=== PATIENT | male | born 1950 | race Caucasian/White ===

== ENCOUNTER 2018-05-19 10:07 | Inpatient (IN) | payer MEDICARE, BC ==
[~2018-05-19] VITALS: Ht 190.5 cm; Wt 104.8 kg
[2018-05-19 13:00] VITALS: BP 118/69
[2018-05-19] MEDS ORDERED: LOTENSIN40 MG PO (13:46)
[2018-05-19] MEDS ORDERED: FLOMAX0.4 MG PO (13:47)
[2018-05-19] MEDS ORDERED: NORVASC10 MG PO (13:47)
[2018-05-19] MEDS ORDERED: METFORMIN HCL500 MG PO (13:48)
[2018-05-19] MEDS ORDERED: CENTRUM SILVER1 EAC4 PO (13:48)
[2018-05-19] MEDS ORDERED: DOXYCYCLINE 10100 MG PO (13:49)
[2018-05-19] MEDS ORDERED: KEFLEX500 M1 PO (13:49)
[2018-05-19 14:19] LABS: HEMATOCRIT 43.9 % (42.0-52.0); HEMOGLOBIN 14.6 gm/dL (14.0-18.0); MCH 29.9 pg (26.0-34.0); MCHC 33.3 g/dL (28.0-37.0); MCV 89.8 fL (80.0-100.0); MPV 9.1 fl. (7.2-11.1); RBC 4.89 mil/uL (4.50-6.00); RDW-CV 14.2 % (10.5-14.5); WBC 7.3 thou/uL (4.0-11.0)
[2018-05-19 14:38] LABS: CALCIUM 9.2 mg/dL (8.5-10.1); CREATININE 1.3 mg/dL (0.6-1.3); POTASSIUM 4.9 mmol/L (3.5-5.1)
[2018-05-19 14:42] LABS: ALBUMIN 3.5 g/dL (3.4-5.0); TOTAL BILIRUBIN 0.3 mg/dL (<0.1-1.0); TOTAL PROTEIN 7.5 g/dL (6.4-8.2)
[2018-05-19 16:00] VITALS: BP 124/63
[2018-05-19 23:27] VITALS: BP 132/74
[2018-05-20 07:06] LABS: ABSOLUTE EOSINOPHILS 0.2 thou/uL (0.0-0.7); ABSOLUTE LYMPHOCYTES 1.7 thou/uL (0.8-5.3); ABSOLUTE MONOCYTES 0.5 thou/uL (0.0-1.2); ABSOLUTE NEUTROPHILS 3.7 thou/uL (1.6-8.1); BASOPHILS 0.5 %; EOSINOPHILS 3.6 %; HEMATOCRIT 43.3 % (42.0-52.0); HEMOGLOBIN 14.3 gm/dL (14.0-18.0); LYMPHOCYTES 27.4 %; MCV 90.9 fL (80.0-100.0); MONOCYTES 8.8 %; MPV 9.5 fl. (7.2-11.1); NUCLEATED RBCS 0 /100WBC; PLATELET COUNT* 192 thou/uL (150-400); POLYS 59.7 %; RBC 4.76 mil/uL (4.50-6.00); RDW-CV 13.7 % (10.5-14.5); WBC 6.2 thou/uL (4.0-11.0)
[2018-05-20 07:12] LABS: ALBUMIN 3.3 g/dL (3.4-5.0); CALCIUM 8.7 mg/dL (8.5-10.1); CREATININE 1.2 mg/dL (0.6-1.3); MAGNESIUM 1.7 mg/dL (1.8-2.4); PHOSPHORUS* 3.5 mg/dL (2.5-4.9); POTASSIUM 4.8 mmol/L (3.5-5.1); TOTAL BILIRUBIN 0.5 mg/dL (<0.1-1.0); TOTAL PROTEIN 7.1 g/dL (6.4-8.2)
[2018-05-20 08:20] VITALS: BP 120/58
--- NOTE | 2018-05-20 08:22 | CON ---
[address] [address] CONSULTATION Name: TAM HARVEY Room: [address] IN M.R.#: [id number] Admission: 05/19/18 Attend Phys: Stone Andrea MD Discharge: Date of : 48 Report #: [id number] THIS REPORT FOR: //name// CC: Stone Andrea Agustin Nickolas Boothe [place] DATE OF SERVICE: 05/19/2018 INFECIOUS DISEASE CONSULTATION ATTENDING PHYSICIAN: Stone Andrea M.D. REASON FOR EVALUATION: Left great toe stump site osteomyelitis involving the distal metatarsal. HISTORY OF PRESENT ILLNESS: Chart reviewed, the patient examined. This is a 67-year-old gentleman with diabetes mellitus diagnosed roughly 18 years ago, who has had multiple complications. He does have peripheral neuropathy and vasculopathy, particularly the distal lower extremity below the knee. He has had multiple amputations including most recently, a couple of weeks ago, had further amputated the left great toe. This dehisced over the course of the last 24 hours prior to admission. He noted marked increase in inflammation there. He has not been systemically ill. He denies any significant elevation of blood sugars. No pulmonary or gastrointestinal-related complaints. He is scheduled to undergo imaging. Lactic acid was 2.5. He is tentatively scheduled to undergo operative procedure. He was given a single dose of vancomycin. ALLERGIES: None known. MEDICATIONS: Include a combination of amlodipine and benazepril, metformin, Flomax, aspirin, multivitamin, cephalexin 500 t.i.d. and doxycycline 100 b.i.d. PAST MEDICAL HISTORY: Includes obstructive sleep apnea, utilizing CPAP; hypertension; prostate enlargement and diabetes mellitus type 2 diagnosed in 1999, complicated by peripheral neuropathy and vasculopathy. SOCIAL HISTORY: Available in the chart. FAMILY HISTORY: Available in the chart. REVIEW OF SYSTEMS: As above. PHYSICAL EXAMINATION: GENERAL: He is alert, cooperative, in mild distress, appears [place] [address] CONSULTATION Name: TAM HARVEY Room: [address] IN [facility]#: [id number] Admission: 05/19/18 Attend Phys: Stone Andrea MD Discharge: Date of : 48 Report #: [id number] VITAL SIGNS: Temperature 97.8, pulse 68, respirations 20 and blood pressure 118/69. SKIN: Warm, dry. No rashes. HEENT: Otherwise unremarkable. NECK: Supple. LUNGS: Clear to auscultation. HEART: Regular. I do not appreciate a murmur. ABDOMEN: Soft, nontender. EXTREMITIES: Left lower extremity was evaluated. The site of previous left great toe amputation at the base has dehisced and looks to have a track, does not probe. The overall degree of inflammation is moderate. No appreciated significant purulence at this point. No particular odor, can evaluate in terms of pain. GENITOURINARY: Deferred. RECTAL: Deferred. LABORATORY DATA: Lactic acid 2.5. Electrolytes: Sodium 138, potassium 4.9, chloride 104, bicarbonate 29, BUN and creatinine 24 and 1.3. LFTs unremarkable. Albumin of 3.5. Total protein of 7.5. Estimated GFR of 55. CBC: White count of 7.3, H and H 14.6 and 43.9 and platelets of 209,000. ASSESSMENT AND PLAN: Probable deep infection reported as an outpatient imaging, raises a question of osteomyelitis. We will go ahead and arrange for parenteral therapy. Tentative plan, I think, is to have additional surgery at this point. The patient reports outpatient cultures with streptococcus. We will go ahead and start therapy with the vancomycin pending those results and availability of outside records. Likely, he will need several weeks of parenteral therapy. <ELECTRONICALLY SIGNED> By: Chris Valera MD 05/20/18 0822 1514 0100Joelder Valera MD /nt
--- NOTE | 2018-05-20 12:13 | EKG ---
[place] [address] ELECTROCARDIOGRAM REPORT Name: TAM HARVEY Room: [address] ADM IN .R.#: [id number] Admission: 05/19/18 Attend Phys: Stone Andrea MD Discharge: Date of : 48 Report #: [id number] THIS REPORT FOR: //name// [facility] Test Date: 2018-05-20 Test Time: 11:17:10 Pat Name: TAM HARVEY Department: Room: [address] Gender: M Software Quality Assurance Specialist: DELVIS : 1950 Requested By: Agustin Olmos Order Number: [id number] Jocelyn MD: Chris Shipley Measurements Intervals [place] Rate: 45 P: 53 WA: 178 QRS: 62 QRSD: 102 T: 32 QT: 435 QTc: 377 Interpretive Statements Sinus bradycardia No previous ECG available for comparison Electronically Signed On 05-20-2018 12:13:27 CDT by Chris Shipley [email or web address] <ELECTRONICALLY SIGNED> By: Chris Shipley MD, [facility] 05/20/18 1213 1117 1117 Chris Shipley MD, FACC /EPI
[2018-05-20 12:59] VITALS: BP 120/58
[2018-05-20 17:25] VITALS: BP 139/72
[2018-05-20 19:22] VITALS: BP 133/67
[2018-05-21 00:25] VITALS: BP 134/74
[2018-05-21 08:15] VITALS: BP 118/58
[2018-05-21 16:14] VITALS: BP 119/53
--- NOTE | 2018-05-21 16:55 | CON ---
[address] [address] CONSULTATION Name: TAM HARVEY Room: [address] IN M.R.#: [id number] Admission: 05/19/18 Attend Phys: Stone Andrea MD Discharge: Date of : 48 Report #: [id number] THIS REPORT FOR: //name// CC: [facility] Stone Velez Nickolas Schulzlando DATE OF SERVICE: 05/20/2018 REASON FOR CONSULTATION: Difficult Velazco and urinary retention. HISTORY OF PRESENT ILLNESS: The patient is a 67-year-old male patient of [facility], who is diabetic and underwent toe amputation today. Postoperatively, he has been unable to urinate and bladder scan showed over a liter. The nurses attempted 3 different times to catheterize him, including with a coude and they were unable to catheterize him. The patient has no history of prior prostate surgery, but he does have a history of prostate cancer, under active surveillance. He had a recent biopsy this year, which was negative for cancer and reports his PSAs have been stable. He denies any prior difficulty with urinary retention. He is on Flomax daily as an outpatient. PAST MEDICAL HISTORY: Includes diabetes; multiple foot surgeries; tonsillectomy; prostate cancer, on active surveillance; left leg surgery secondary to a chainsaw accident. MEDICATIONS: Medications at home are reviewed and are per inpatient medical record as are the inpatient medications. ALLERGIES: None. SOCIAL HISTORY: The patient is a current every-day smoker. He has been smoking for 18 years. FAMILY HISTORY: Noncontributory. REVIEW OF SYSTEMS: Twelve-point review of systems performed and is negative except as noted above in HPI. He does report some foot pain postoperatively. PHYSICAL EXAMINATION: VITAL SIGNS: Temperature is 36.9, pulse 49, blood pressure 133/67, respirations 16. He is on room air. GENERAL: He is well-developed, well-nourished white male in no acute distress. He is alert and oriented x 3. HEENT: Normocephalic, atraumatic. RESPIRATIONS: [place] [address] CONSULTATION Name: STEPHANIELISANDRATAM Servando Room: [address]#: [id number] Admission: 05/19/18 Attend Phys: Stone Andrea MD Discharge: Date of : 48 Report #: [id number] HEART: Regular. ABDOMEN: Soft, nondistended, but he does have tenderness in the suprapubic region and he does have bladder distention. He has an umbilical hernia. GENITOURINARY: Normal circumcised phallus with normal meatus and testes are descended bilaterally. EXTREMITIES: Without edema. He has his multiple toe amputations on the right side. On the left side, he has a bandage on his foot. LABORATORY DATA: CBC is normal. His creatinine was 1.2. ASSESSMENT AND PLAN: 1. Urinary retention. 2. Difficult Velazco. 3. History of prostate cancer, on active surveillance. After the patient was prepped and draped, I was able to place a 14-Belgian Coude catheter after having used a Uro-Jet without difficulty, over 1000 mL of clear yellow urine were drained. I would recommend restarting his Flomax and would leave his catheter in for several days. He can potentially be discharged home with catheter and scheduled for an outpatient voiding trial depending on when he is discharged. I would recommend he can try to minimize narcotics if possible and keep bowels regular. Likely his retention is multifactorial, especially being postoperative. <ELECTRONICALLY SIGNED> By: Su Espinosa MD 05/21/18 1655 2351 0520Su Espinosa MD /nt
[2018-05-21 21:10] VITALS: BP 125/58
[2018-05-22 03:53] LABS: HEMATOCRIT 39.1 % (42.0-52.0); HEMOGLOBIN 13.1 gm/dL (14.0-18.0); MCH 30.2 pg (26.0-34.0); MCHC 33.5 g/dL (28.0-37.0); MCV 90.3 fL (80.0-100.0); MPV 9.8 fl. (7.2-11.1); RBC 4.34 mil/uL (4.50-6.00); RDW-CV 13.6 % (10.5-14.5); WBC 7.6 thou/uL (4.0-11.0)
[2018-05-22 04:18] LABS: CALCIUM 8.5 mg/dL (8.5-10.1); CREATININE 1.1 mg/dL (0.6-1.3); MAGNESIUM 1.7 mg/dL (1.8-2.4); PHOSPHORUS* 3.4 mg/dL (2.5-4.9); POTASSIUM 3.9 mmol/L (3.5-5.1)
[2018-05-22 08:25] VITALS: BP 105/65
[2018-05-22 17:07] VITALS: BP 109/63
[2018-05-22 21:22] VITALS: BP 109/52
[2018-05-23] VITALS: BP 116/61
[2018-05-23 04:00] VITALS: BP 118/60
[2018-05-23 04:26] LABS: HEMATOCRIT 38.9 % (42.0-52.0); HEMOGLOBIN 12.9 gm/dL (14.0-18.0); MCH 29.8 pg (26.0-34.0); MCHC 33.1 g/dL (28.0-37.0); MCV 90.1 fL (80.0-100.0); RBC 4.32 mil/uL (4.50-6.00); RDW-CV 13.6 % (10.5-14.5); WBC 6.5 thou/uL (4.0-11.0)
[2018-05-23 04:36] LABS: CALCIUM 8.2 mg/dL (8.5-10.1); MAGNESIUM 1.7 mg/dL (1.8-2.4); PHOSPHORUS* 3.3 mg/dL (2.5-4.9)
[2018-05-23 08:10] VITALS: BP 113/46
[2018-05-23] MEDS ORDERED: VANCO 1.251.25 GM/25 IV (10:16)
[2018-05-23 10:19] VITALS: BP 113/46
[2018-05-23 16:00] VITALS: BP 122/55
[2018-05-23] MEDS ORDERED: COLACE100 MG PO (18:36)
[2018-05-23] MEDS ORDERED: MIRALAX17 GM PO (18:37)
[2018-05-23 23:25] VITALS: BP 163/57
[2018-05-24 08:05] VITALS: BP 134/66
[2018-05-24 08:36] LABS: HEMATOCRIT 42.6 % (42.0-52.0); HEMOGLOBIN 14.2 gm/dL (14.0-18.0); MCH 29.7 pg (26.0-34.0); MCHC 33.3 g/dL (28.0-37.0); MCV 89.3 fL (80.0-100.0); MPV 9.8 fl. (7.2-11.1); RBC 4.77 mil/uL (4.50-6.00); RDW-CV 13.8 % (10.5-14.5); WBC 7.2 thou/uL (4.0-11.0)
[2018-05-24 08:45] LABS: CALCIUM 8.9 mg/dL (8.5-10.1); CREATININE 1.1 mg/dL (0.6-1.3); MAGNESIUM 1.9 mg/dL (1.8-2.4); PHOSPHORUS* 3.3 mg/dL (2.5-4.9)
[2018-05-24 09:14] VITALS: BP 134/66
[2018-05-24] MEDS ORDERED: NORCO 5-325 TA1 EACH PO (11:10)
--- NOTE | 2018-05-24 15:08 | PATH ---
[address] [address] PATHOLOGY RPT PROCEDURE Name: TAM AGGARWAL Room: [address] IN M.R.#: [id number] Admission: 05/19/18 Date of : 48 Discharge: 05/24/18 Report #: [id number] Path Case #: [id number] [facility] Accession Number: [id number] . 01 Material submitted: . LEFT FIRST METATARSAL . 01 Clinician provided ICD-10: M86.8X7 . 01 Clinical history: . Osteomyelitis left first metatarsal . 02 Diagnosis: Left first metatarsal: - Benign osteocartilage segment with osteomyelitis, with transection margin free of involvement. . (MARIAM:vjm;05/24/2018) AGA/05/24/2018 . 02 Electronically signed: . Carlos Lowe MD, Pathologist NPI- [id number] . 01 Gross description: . The specimen is received in formalin, labeled "Tam Aggarwal, left first metatarsal". Received is a segment of bone measuring 4.8 x 3.0 x 2.7 cm in greatest dimensions. One margin is blunt in appearance, consistent with transection. The opposite margin is smooth and convex in appearance, consistent with disarticulation. The transected margin is inked black. A full length longitudinal section is submitted from proximal to distal aspects in cassettes A1 through A3, following decalcification. (CAA; 05/23/2018) QAC/QAC . 02 Pathologist provided ICD-10: M86.8X7 . 02 CPT . 117199, [id number] Specimen Comment: A courtesy copy of this report has been sent to Specimen Comment: [phone], , . Specimen Comment: Report sent to ,DR ATKINSON / DR HERNANDEZ Performed at: [address], [place] [id number] MD Grey Livingston MD Phone: [phone] [place] [address] PATHOLOGY RPT PROCEDURE Name: TAM AGGARWAL Room: [address] IN M.R.#: [id number] Admission: 05/19/18 Date of : 48 Discharge: 05/24/18 Report #: [id number] Path Case #: [id number] Performed at: [address] [facility] [address] [place] [id number] MD Carlos Lowe MD Phone: [phone]
--- NOTE | 2018-06-15 14:14 | CON ---
[address] [address] CONSULTATION Name: TAM HARVEY Room: [address] IN M.R.#: [id number] Admission: 05/19/18 Attend Phys: Stone Andrea MD Discharge: 05/24/18 Date of : 48 Report #: [id number] THIS REPORT FOR: //name// CC: Stone Boothe Cordell Maria Luisa Billy [facility] DATE OF SERVICE: 05/22/2018 CHIEF COMPLAINT: Status post resection, left distal first metatarsal for osteomyelitis. HISTORY OF PRESENT ILLNESS: He is doing well, surgical soft tissue and bone cultures are pending. He is on parenteral vancomycin with good tolerance. He feels well with good appetite and no pain to the foot. A PICC line has been placed, and yesterday he had nonweightbearing physical therapy. LABORATORY DATA: WBC is 7.6, RBC 4.34, hemoglobin 13.1, hematocrit 39.1, platelets 162. BUN 17, creatinine 1.1, glucose 135. PHYSICAL EXAMINATION: Temperature 98.2, pulse 56, respirations 16, blood pressure 125/58. The incision is well coapted with no inflammation and mild edema. There is no drainage, fluctuance, crepitation or signs of acute vascular embarrassment. Immediate lissette-incisional capillary refill. No pain to the area. IMPRESSION: Osteomyelitis, type 2 diabetes mellitus, status post left partial first ray resection with primary closure. PLAN: Incision was cleansed and redressed with Aquacel Ag, 4 x 4s, ABD, Kerlix and Kolton. The patient to remain strictly nonweightbearing to the foot using assistive device. He will have physical therapy today and he is scheduled for a noninvasive arterial duplex Doppler tomorrow. I am awaiting surgical cultures. <ELECTRONICALLY SIGNED> By: Agustin Olmos DPM 06/15/18 1414 0848 1216Dadani Olmos DPM /nt
--- NOTE | 2018-06-15 14:14 | OP ---
[address] [address] OPERATIVE REPORT Name: CANDICETMA Servando Room: [address] IN M.R.#: [id number] Admission: 05/19/18 Attend Phys: Stone Andrea MD Discharge: 05/24/18 Date of : 48 Report #: [id number] THIS REPORT FOR: //name// CC: Stone Olmos [facility] DATE OF SERVICE: 05/20/2018 SURGEON: Agustin Olmos DPM PREOPERATIVE DIAGNOSIS: Osteomyelitis, right distal first metatarsal with deep tissue infection and ulceration. POSTOPERATIVE DIAGNOSIS: Osteomyelitis, right distal first metatarsal with deep tissue infection and ulceration. PROCEDURES: 1. Resection of left distal first metatarsal. 2. Incision and drainage, left foot. 3. Pedicled skin flap, left foot. ANESTHESIA: MAC. INJECTABLES: 30 mL of a 1:1 mixture of 0.5% Marcaine plain and 1% lidocaine plain. ESTIMATED BLOOD LOSS: Minimal. HEMOSTASIS: Left ankle pneumatic tourniquet at 250 mmHg. SPECIMENS: Left distal first metatarsal. CULTURES: 1. Bone, left distal first metatarsal, aerobic and anaerobic. 2. Soft tissue, left foot, aerobic and anaerobic. ESTIMATED BLOOD LOSS: Minimal. SUTURES: 3-0 nylon. COMPLICATIONS: None. DESCRIPTION OF PROCEDURE: The patient was brought to the OR and placed on the table supine with induction of MAC anesthesia. A well-padded left ankle pneumatic tourniquet was placed. A local anesthetic [place] [address] OPERATIVE REPORT Name: TAM HARVEY Room: [address] IN M.Rock.#: [id number] Admission: 05/19/18 Attend Phys: Stone Andrea MD Discharge: 05/24/18 Date of : 48 Report #: [id number] extremity was prepped and draped aseptically. The foot was exsanguinated with inflation of the tourniquet. A #10 surgical blade was used to create a dorsal linear incision over the left distal first metatarsal. Dissection carried down to the bone, and the soft tissue envelope was dissected off the bone. The distal first metatarsal was discolored and necrotic. It was soft and clinically consistent with osteomyelitis. There is abundant infected soft tissue surrounding the first metatarsal head that was nonviable. I transected the distal first metatarsal just proximal to the midshaft area. A payroll representative portion of bone was sent for aerobic and anaerobic bone culture. I debrided the soft tissue from the surgical site to include tendons, fat and other subcutaneous tissue. A payroll representative portion was sent for aerobic and anaerobic culture. The sesamoids and great toe had previously been removed. Electrocautery was used for hemostasis. The wound was flushed with 1 liter of sterile saline with 50,000 units of bacitracin and dried. The skin margins were remodeled and a plantar medial flap was mobilized dorsolaterally and sutured with 3-0 nylon in simple interrupted fashion. Upon complete closure of the wound, the foot was cleansed and dried. The tourniquet was deflated with lissette-incisional capillary refill of roughly 0.5 seconds. A sterile compressive bandage was applied with Betadine-soaked Adaptic, fluffs, ABDs, Kerlix and Kolton wrap. The patient left the OR alert and oriented with no pain or complications noted. <ELECTRONICALLY SIGNED> By: Agustin Olmos DPM 06/15/18 1414 1859 2210Dadani Olmos DPM /nt
--- NOTE | 2018-06-15 14:14 | CON ---
[address] [address] CONSULTATION Name: STEPHANIELISANDRATAM Al Room: [address] IN M.R.#: [id number] Admission: 05/19/18 Attend Phys: Stone Andrea MD Discharge: 05/24/18 Date of : 48 Report #: [id number] THIS REPORT FOR: //name// CC: Stone Cervantes [facility] DATE OF SERVICE: 05/21/2018 CHIEF COMPLAINT: Status post left partial first ray resection with primary closure. SUBJECTIVE: He had osteomyelitis of the distal left first metatarsal with deep tissue infection and ulceration. I was able to primarily close the wound with drain. Bone was sent for pathology and culture, and soft tissue for culture. He is resting comfortably with no pain to the foot. He has good appetite and has been afebrile with no constitutional symptoms. He did have Velazco catheter placed last night after surgery. He is on parenteral vancomycin with good tolerance. Preoperative MRI showed marrow infiltration of the distal and mid shaft to the left first metatarsal with soft tissue phlegmon.. PHYSICAL EXAMINATION: EXTREMITIES: The incision is well coapted with expected postoperative edema and low grade inflammation. No drainage, no fluctuance or crepitation. No signs of acute vascular embarrassment. Nereyda-incisional capillary refill roughly 0.5 seconds. Foot is warm with palpable dorsalis pedis and posterior tibial pulses. No popliteal adenopathy, negative Homans' or Birch sign to either extremity. He can flex and extend the left ankle. IMPRESSION: Status post left partial first ray resection with primary closure, osteomyelitis, type 2 diabetes mellitus with peripheral neuropathy. PLAN: The incision was cleansed and dried. A small wick of Aquacel Ag was tucked into the small drainage exit site to the distal incision. The incision was covered with Aquacel Ag, 4 x 4s, ABD, Kerlix and Kolton bandage. The patient to remain strictly nonweightbearing to the extremity and elevate. I will order physical therapy today and noninvasive arterial Doppler exam to assess arterial flow. I will see the patient tomorrow. <ELECTRONICALLY SIGNED> By: Agustin Olmos DPM 06/15/18 1414 0817 [id number] Olmos DPM /nt
--- NOTE | 2018-06-15 14:14 | CON ---
[address] [address] CONSULTATION Name: TAM HARVEY Room: [address] IN M.R.#: [id number] Admission: 05/19/18 Attend Phys: Stone Andrea MD Discharge: 05/24/18 Date of : 48 Report #: [id number] THIS REPORT FOR: //name// CC: Stone Velez Nickolas Boothe [place] DATE OF SERVICE: 05/20/2018 CHIEF COMPLAINT AND HISTORY OF PRESENT ILLNESS: The patient was admitted yesterday for osteomyelitis of the left distal first metatarsal. He had recent left hallux amputation performed by Dr. Maria Luisa Cervantes, and she had him scheduled for an upcoming partial first ray resection due to progression of the infection. The patient noticed the wound has worsened since Dr. Cervantes last saw him on Wednesday. I saw him yesterday, and had him admitted for partial first ray amputation on parenteral antibiotics. He has no clinical signs of septicemia, he has been afebrile. No foot pain due to advanced peripheral neuropathy. He is on parenteral vancomycin. Recent cultures grew group B streptococcus and Enterobacter. He is scheduled for partial first ray resection this afternoon. LABORATORY DATA: WBC 6.2, RBC 4.76, hemoglobin 14.3, hematocrit 43.3, platelets 192. BUN 18, creatinine 1.2, glucose 126. PHYSICAL EXAMINATION: I did not change his bandage today since it was dry, clean and intact. IMPRESSION: Osteomyelitis, left distal first metatarsal, with type 2 diabetes mellitus. PLAN: MRI to be performed morning. The patient is scheduled for partial first ray resection later this afternoon. Remain nonweightbearing and n.p.o. <ELECTRONICALLY SIGNED> By: Agustin Olmos DPM 06/15/18 1414 0725 [id number] Olmos DPM /nt
== END 2018-05-24 12:00 | disposition home health service (06) | DRG 854 ==
LOC: M.3W 12:31
PROVIDERS: ADMIT Internal Medicine
PROC: 02HV33Z Insertion of Infusion Device into Superior Vena Cava, Percutaneous Approach (ICD-10-PCS; principal; 2018-05-19)
PROC: 0QTP0ZZ Resection of Left Metatarsal, Open Approach (ICD-10-PCS; 2018-05-20)
DX: A41.9 Sepsis, unspecified organism (principal); M86.8X8 Other osteomyelitis, other site; M31.9 Necrotizing vasculopathy, unspecified; I10 Essential (primary) hypertension; F17.210 Nicotine dependence, cigarettes, uncomplicated; E11.69 Type 2 diabetes mellitus with other specified complication; E11.42 Type 2 diabetes mellitus with diabetic polyneuropathy; G47.33 Obstructive sleep apnea (adult) (pediatric); N40.1 Benign prostatic hyperplasia with lower urinary tract symptoms; E83.42 Hypomagnesemia; R33.8 Other retention of urine; Z85.46 Personal history of malignant neoplasm of prostate; Z79.4 Long term (current) use of insulin; Z79.2 Long term (current) use of antibiotics; Z79.899 Other long term (current) drug therapy